=== PATIENT | male | born 1995 | race Caucasian/White ===

== ENCOUNTER 2017-09-10 23:46 | Emergency (ER) | payer OTHER ==
[2017-09-11] MEDS: ACETAMINOPHEN 325 MG TAB PO (01:58)
[2017-09-11] MEDS: AL HYDROX/MG HYDROX/SIMETH 30 ML CUP PO (02:03)
== END 2017-09-11 03:58 | disposition home or self-care (01) ==
LOC: FTE 23:46
DX: M79.661 Pain in right lower leg (principal); M79.662 Pain in left lower leg; Z87.891 Personal history of nicotine dependence
CPT/HCPCS: 93970; 99284-25

== ENCOUNTER 2019-02-07 15:09 | Emergency (ER) | payer OTHER ==
[2019-02-07] MEDS: ALBUTEROL 0.083% (NEB) 2.5 MG/3 ML AMP NEB (16:29)
== END 2019-02-07 17:13 | disposition home or self-care (01) ==
LOC: FTE 15:09
DX: R07.89 Other chest pain (principal)
CPT/HCPCS: 93005; 94664; 99283-25